=== PATIENT | female | born 1980 | race Caucasian/White ===

== ENCOUNTER 2023-07-04 11:20 | Emergency (ER) | payer BC, OTHER ==
[2023-07-04 11:51] VITALS: BP 110/70; PULSE 77; RESP 18; TEMP 98.4; BMI 29.9
[2023-07-04] MEDS ORDERED: ACETAMINOPHEN 500 MG TABLET (FP) ONE (11:53)
[2023-07-04] MEDS: ACETAMINOPHEN 500 MG TABLET (FP) PO ONE (11:55)
== END 2023-07-04 13:28 | disposition home or self-care (01) ==
LOC: FER 11:20
DX: M25.512 Pain in left shoulder (principal); X50.0XXA Overexertion from strenuous movement or load, initial encounter
CPT/HCPCS: 73030-TC-LT-FY; 99283-25